=== PATIENT | female | born 1995 ===

== ENCOUNTER 2024-01-17 08:20 | Outpatient (CLI) | payer BC, SELFPAY | END 2024-01-17 08:21 | disposition home or self-care (01) | PROVIDERS: Visit Provider Advanced Practice Midwife | DX: Z34.91 Encounter for supervision of normal pregnancy, unspecified, first trimester (principal); Z3A.01 Less than 8 weeks gestation of pregnancy | CPT/HCPCS: 76817; 86592; 86703; 86704; 86706; 86762; 86787; 86803; 86850; 86900; 86901; 87086; 87340 ==